=== PATIENT | female | born 1995 | race Caucasian/White ===

== ENCOUNTER 2024-02-10 22:31 | Emergency (ER) | payer BC ==
[~2024-02-10] VITALS: Ht 160 cm; Wt 102.1 kg
[2024-02-11] MEDS ORDERED: KETOROLAC TROMETHAMINE INJ 30 MG/ML VIAL ONE (00:05)
[2024-02-11] MEDS: KETOROLAC TROMETHAMINE INJ 60 MG/2 ML VIAL IM ONE (00:10)
[2024-02-11 00:12] VITALS: BP 136/79; TEMP 97.8; O2SAT 100
== END 2024-02-11 00:13 | disposition home or self-care (01) ==
LOC: ER 22:40
DX: N39.0 Urinary tract infection, site not specified (principal); M54.50 Low back pain, unspecified
CPT/HCPCS: 99283; 96372; J1885